=== PATIENT | female | born 1995 | race Hispanic/Latino ===

== ENCOUNTER → 2019-11-06 13:32 | Outpatient (CLI) | payer OTHER, SELFPAY ==
[2019-11-12 11:09] LABS: NIL 0.01; QuantiFERON TB NEGATIVE
[2019-11-12 11:10] LABS: Mitogen-NIL 6.17
[2019-11-12 11:11] LABS: TB1-NIL <0.01
[2019-11-12 11:12] LABS: TB2-NIL 0.01
== END ==
PROVIDERS: Referring Provider Internal Medicine; Visit Provider Internal Medicine
DX: R76.11 Nonspecific reaction to tuberculin skin test without active tuberculosis (principal)
CPT/HCPCS: 36415; 86480